=== PATIENT | male | born 1990 | race American Indian/Alaskan Native ===

== ENCOUNTER 2019-01-08 09:20 | Emergency (ER) | payer MEDICAID ==
[2019-01-08 10:09] LABS: Hematocrit 45.8 % (35.5-45.6); Hemoglobin 15.5 gm/dl (11.8-15.2); Mean Corpuscular HGB Conc 34 % (32-34); Mean Corpuscular Volume 94 fl (84-94); Platelet Count 291 K/mm3 (140-440); Red Blood Count 4.88 M/mm3 (3.65-5.03); Red Cell Distribution Width 13.9 % (13.2-15.2)
--- NOTE | 2019-01-08 10:16 | Emergency Department Report ---
ED General Adult HPI - General Chief complaint: Medical Clearance Stated complaint: HBP/DIABECTIC/NUMB FINGERS Time Seen by Provider: 01/08/19 10:13 Source: patient Mode of arrival: Ambulatory Limitations: No Limitations - History of Present Illness Initial comments: Patient is a cooperative 28-year-old -[place] male who comes to the ER today complaining of vague complaints of fatigue. He states that he has diabetes but is on no medications. He also states that he has PTSD and is on no medications. He has seen providers at [facility] in the past. He has no appointment scheduled with them. Patient is very vague in his complaints. After spending some time with him he became tearful. He told me about his PTSD and being off medications. He denied HI or SI. -: Gradual Treatments Prior to Arrival: none - Related Data Allergies Allergy/AdvReac Type Severity Reaction Status Date / Time No Known Allergies Allergy Verified 01/08/19 10:02 ED Review of Systems ROS: Stated complaint: HBP/DIABECTIC/NUMB FINGERS Other details as noted in HPI Comment: All other systems reviewed and negative Constitutional: see HPI, other (fatigue). denies: chills Eyes: denies: eye pain ENT: denies: ear pain Respiratory: denies: cough Cardiovascular: denies: dyspnea on exertion Endocrine: denies: excessive sweating Gastrointestinal: denies: nausea Genitourinary: denies: urgency Musculoskeletal: denies: back pain Skin: denies: lesions Neurological: as per HPI, numbness. denies: headache, weakness Psychiatric: as per HPI. denies: anxiety, depression ED Past Medical Hx - Past Medical History Previous Medical History?: Yes Hx Hypertension: Yes Hx Diabetes: Yes Additional medical history: ptsd - Surgical History Past Surgical History?: No - Family History Family history: no significant - Social History Smoking Status: Current Every Day Smoker Substance Use Type: Alcohol, Marijuana ED Physical Exam - General Limitations: No Limitations General appearance: alert - Head Head exam: Present: atraumatic - Eye Eye exam: Present: normal appearance - ENT ENT exam: Present: mucous membranes moist - Neck Neck exam: Present: normal inspection - Respiratory Respiratory exam: Present: normal lung sounds bilaterally - Cardiovascular Cardiovascular Exam: Present: regular rate - GI/Abdominal GI/Abdominal exam: Present: soft, normal bowel sounds - Rectal Rectal exam: Present: deferred - Extremities Exam Extremities exam: Present: normal inspection, full ROM - Back Exam Back exam: Present: normal inspection, full ROM - Neurological Exam Neurological exam: Present: alert, oriented X3, CN II-XII intact, normal gait, reflexes normal - Psychiatric Psychiatric exam: Present: depressed, other (denied hi and si) - Skin Skin exam: Present: warm, dry, intact ED Course Vital Signs 01/08/19 10:01 Temperature 97.4 F L Pulse Rate 84 Respiratory 18 Rate Blood Pressure 117/67 O2 Sat by Pulse 99 Oximetry - Reevaluation(s) Reevaluation #1: 01/08/19 Given patient's tearfulness have asked mental health to see the patient. In addition labs have been ordered to evaluate his medical complaint of fatigue ED Medical Decision Making - Lab Data Result diagrams: 01/08/19 09:59 01/08/19 09:59 - Medical Decision Making Labs 01/08/19 01/08/19 01/08/19 09:48 09:59 09:59 WBC 4.9 RBC 4.88 Hgb 15.5 H Hct 45.8 H MCV 94 MCH 32 MCHC 34 RDW 13.9 Plt Count 291 Sodium 138 Potassium 4.0 Chloride 99.9 Carbon Dioxide 29 Anion Gap 13 BUN 13 Creatinine 0.8 Estimated GFR > 60 BUN/Creatinine Ratio 16 Glucose 102 H POC Glucose 72 Calcium 9.2 Total Bilirubin 0.60 AST 19 ALT 14 Alkaline Phosphatase 63 Total Protein 7.5 Albumin 4.4 Albumin/Globulin Ratio 1.4 Urine Color Urine Turbidity Urine pH Ur Specific Vandiver Urine Protein Urine Glucose (UA) Urine Ketones Urine Blood Urine Nitrite Urine Bilirubin Urine Urobilinogen Ur Leukocyte Esterase Urine WBC (Auto) Urine RBC (Auto) Urine Mucus 01/08/19 10:20 WBC RBC Hgb Hct MCV MCH MCHC RDW Plt Count Sodium Potassium Chloride Carbon Dioxide Anion Gap BUN Creatinine Estimated GFR BUN/Creatinine Ratio Glucose POC Glucose Calcium Total Bilirubin AST ALT Alkaline Phosphatase Total Protein Albumin Albumin/Globulin Ratio Urine Color Yellow Urine Turbidity Clear Urine pH 5.0 Ur Specific Vandiver 1.026 Urine Protein 30 mg/dl Urine Glucose (UA) Neg Urine Ketones Neg Urine Blood Neg Urine Nitrite Neg Urine Bilirubin Neg Urine Urobilinogen 2.0 Ur Leukocyte Esterase Tr Urine WBC (Auto) 6.0 Urine RBC (Auto) 2.0 Urine Mucus 1+ Vital Signs 01/08/19 10:01 Temperature 97.4 F L Pulse Rate 84 Respiratory 18 Rate Blood Pressure 117/67 O2 Sat by Pulse 99 Oximetry My Active Orders 01/08/19 TSH [Thyroid Stimulating Hormone] Stat UDS [Drugs of Abuse Panel, Urine] Stat 01/08/19 09:26 Blood Glucose Point of Care STAT 01/08/19 10:16 Mental Health Evaluation- ED ONCE 01/08/19 11:29 1013 [ED Psych 1013] ONCE.ED 1129 Mental health has seen and evaluated pt. See note. Pt 1013 and moved to main ED for further psychiatric evaluation. He remains cooperative. Critical care attestation.: If time is entered above; I have spent that time in minutes in the direct care of this critically ill patient, excluding procedure time. ED Disposition Clinical Impression: Psychosis Disposition: [id number]/TX-[id number] PSY HOSP/PSY UNIT Is pt being admited?: No Does the pt Need Aspirin: No Condition: Stable
[2019-01-08 10:22] LABS: Alanine Aminotransferase 14 units/L (7-56); Albumin 4.4 g/dL (3.9-5); BUN/Creatinine Ratio 16; Blood Urea Nitrogen 13 mg/dL (9-20); Calcium 9.2 mg/dL (8.4-10.2); Hemolysis Index 5
[2019-01-08 11:12] LABS: Bilirubin,Urine NEG (Negative); Blood,Urine NEG (Negative); Color,Urine Yellow (Yellow); Mucus,Urine 1+ /HPF
[2019-01-08] MEDS ORDERED: AFRIN InNostril PRN (22:40)
[2019-01-08] MEDS ORDERED: IBUPROFEN PO ONE (22:46)
[2019-01-08] MEDS ORDERED: VICKS SINEX NS PRN (23:44)
--- NOTE | 2019-01-08 23:49 | Emergency Department Report ---
Blank Doc - Documentation Documentation: I was asked to see this patient as he was evaluated for inpatient psychiatric treatment but a 1013 was never actually filled out. He was seen by the mid- level nurse practitioner, as well as the psych health insurance assessor, who felt that he would benefit from inpatient psychiatric treatment secondary to some paranoia, delusions and some questionable voices or personalities in his head. He denies any suicidal or homicidal ideations. The patient has been calm and appropriate for me, but he does admit to these voices and some emotional lability. He is interested in "getting my mind right." For these reasons I will fill out the 1013 and the patient will be evaluated by the psychiatric team while he remains in the emergency department.
[2019-01-09 08:17] LABS: Benzodiazepines Screen,Urine PRESUMPTIVE NEGATIVE; Cocaine Screen,Urine PRESUMPTIVE NEGATIVE; Methadone Screen,Urine PRESUMPTIVE NEGATIVE; Opiate Screen,Urine PRESUMPTIVE NEGATIVE
[2019-01-09 08:28] LABS: Amphetamine Screen,Urine PRESUMPTIVE POSITIVE; Cannabinoid Screen,Urine PRESUMPTIVE POSITIVE
--- NOTE | 2019-01-09 11:04 | Consultation ---
History of Present Illness - Reason for Consult Consult date: 01/09/19 Reason for consult: Mental Health Evaluation Requesting physician: DESEAN GANDARA - Chief Complaint Chief complaint: "It's all in my head" - History of Present Psychiatric Illness 28 y.o. AA male who presented to the ER for acute psychosis. Today the patient is calm, but paranoid during the assessment. He stated that he was experiencing some type of "energy" from everyone in the ER. Throughout the interview, the patient was looking around, possibly responding to some type of stimuli. He rambled on about buying a ticket to go out of town to drive a truck. Most of his answers to questions were not logical. The patient is not a good historian at this time. No gestures of SI/HI's. Medications and Allergies Allergies Allergy/AdvReac Type Severity Reaction Status Date / Time No Known Allergies Allergy Verified 01/08/19 10:02 Home Medications Medication Instructions Recorded Confirmed Last Taken Type Afrin 1 spray INNOSTRIL PRN PRN 01/08/19 01/08/19 Unknown History Active Meds: Active Medications Oxymetazoline HCl (Afrin) 2 spray NS Q12H PRN PRN Reason: Nasal Congestion Past psychiatric history - Past Medical History Past Medical History: No medical history Past Surgical History: No surgical history - past Psychiatric treatment and history psychiatric treatment history: Inpatient psy settings in the past. Denies a fam psy hx. - Social History Social history: lives with family Mental Status Exam - Vital signs Last Vital Signs Temp 98.1 F 01/09/19 08:00 Pulse 63 01/09/19 08:00 Resp 12 01/09/19 08:00 BP 100/70 01/09/19 08:00 Pulse Ox 100 01/09/19 08:00 - Exam Narrative exam: MSE: Appearance: calm, cooperative Behavior: regular eye contact Speech: hyper verbal Mood: "okay" Affect: flat Thought Process: tangential Thought Content: no gestures of SI/HI's, paranoia, delusional Motor Activity: sitting up in the bed Cognition: A/O x 3 Insight: poor Judgment: poor Results Result Diagrams: 01/08/19 09:59 01/08/19 09:59 All other labs normal. Assessment and Plan Assessment and plan: Impression: Unspecified Psychosis. Substance Use DO (amphetamines). Cannabis Use DO. Today the patient is cooperative, but paranoid during the assessment. DDx: Substance Induced Psychosis Recommendation/Plan: Continue 1013. Dispo: The patient was accepted at [facility] for inpatient psy services. Will staff with Dr Ty [place].
[2019-01-09 14:41] VITALS: BP 111/86
== END 2019-01-09 14:53 ==
LOC: ED 09:20
DX: F31.9 Bipolar disorder, unspecified (principal); F20.9 Schizophrenia, unspecified; I10 Essential (primary) hypertension; E11.9 Type 2 diabetes mellitus without complications; F17.200 Nicotine dependence, unspecified, uncomplicated; F12.90 Cannabis use, unspecified, uncomplicated
CPT/HCPCS: 36415; 80053; 80307; 81001; 82962; 84443; 85027; 99285; J3246